=== PATIENT | male | born 1955 ===

== ENCOUNTER 2019-12-14 08:54 | Emergency (ER) | payer SELFPAY ==
[2019-12-14 09:54] VITALS: BP 138/72
--- NOTE | 2019-12-14 12:53 | Emergency Department Report ---
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 He states initially they started as small bumps and he was scratching them. He states that they increased in size and began scabbing and draining. He states that he was manually squeezing them. Patient states that he went to [facility] on 12/08/2019 and was given a prescription for Keflex. He states that despite the antibiotics the symptoms were not improving. He also had blood work performed and had a normal white blood cell count at that time. He states that he has clear drainage. He denies any fever, vomiting, diarrhea, chills, any other symptoms. He denies seeing or feeling anything bite him. He denies any abrasions or lacerations. 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 - Related Data Previous Rx's Medication Instructions Recorded Last Taken Type Acetaminophen/Codeine [Tylenol 1 tab PO Q6H PRN #10 tab 12/14/19 Unknown Rx /Codeine # 3 tab] Bacitracin Zinc Oint [Antibiotic 1 applic TP BID #1 tube 12/14/19 Unknown Rx Oint] Sulfamethoxazole/Trimethoprim 1 each PO BID 10 Days #20 tablet 12/14/19 Unknown Rx [Bactrim DS TAB] Abscess Boil HPI - HPI Chief Complaint: Wound/Laceration Stated Complaint: RT ARM INFECTION Time Seen by Provider: 12/14/19 12:14 Home Medications: Previous Rx's Medication Instructions Recorded Last Taken Type Acetaminophen/Codeine [Tylenol 1 tab PO Q6H PRN #10 tab 12/14/19 Unknown Rx /Codeine # 3 tab] Bacitracin Zinc Oint [Antibiotic 1 applic TP BID #1 tube 12/14/19 Unknown Rx Oint] Sulfamethoxazole/Trimethoprim 1 each PO BID 10 Days #20 tablet 12/14/19 Unknown Rx [Bactrim DS TAB] ED Review of Systems ROS: Stated complaint: RT ARM INFECTION Other details as noted in HPI Comment: All other systems reviewed and negative ED Past Medical Hx - Past Medical History Previous Medical History?: No - Social History Smoking Status: Never Smoker Substance Use Type: Alcohol - Medications Home Medications: Home Medications Medication Instructions Recorded Confirmed Last Taken Type Acetaminophen/Codeine [Tylenol 1 tab PO Q6H PRN #10 tab 12/14/19 Unknown Rx /Codeine # 3 tab] Bacitracin Zinc Oint [Antibiotic 1 applic TP BID #1 tube 12/14/19 Unknown Rx Oint] Sulfamethoxazole/Trimethoprim 1 each PO BID 10 Days #20 tablet 12/14/19 Unknown Rx [Bactrim DS TAB] ED Physical Exam - General Limitations: No Limitations General appearance: alert, in no apparent distress - Head Head exam: Present: atraumatic, normocephalic - Eye Eye exam: Present: normal appearance - ENT ENT exam: Present: mucous membranes moist - Neurological Exam Neurological exam: Present: alert, oriented X3 - Psychiatric Psychiatric exam: Present: normal affect, normal mood - Skin Skin exam: Present: warm, dry, other (2 cm circular area of induration present to the right arm, another 1 cm circular area of induration present to the right arm, there is scabbing and openings present, serous drainage, no purulent drainage, no fluctuance, mild surrounding erythema, neurovascularly intact, FROM of the RUE) ED Course Vital Signs 12/14/19 09:53 Temperature 97.8 F Pulse Rate 74 Respiratory 20 Rate Blood Pressure 138/72 [Right] O2 Sat by Pulse 98 Oximetry ED Medical Decision Making - Medical Decision Making Maty, patient registration representative used for Faroese interpretation Patient is a 64-year-old male who presents emergency room with complaints of a right arm infection that began 22 days ago. He states initially they started as small bumps and he was scratching them. He states that they increased in size and began scabbing and draining. He states that he was manually squeezing them. Patient states that he went to [facility] on 12/08/2019 and was given a prescription for Keflex. He states that despite the antibiotics the symptoms were not improving. He also had blood work performed and had a normal white blood cell count at that time. He states that he has clear drainage. He denies any fever, vomiting, diarrhea, chills, any other symptoms. He denies seeing or feeling anything bite him. He denies any abrasions or lacerations. 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 VSS. on exam: 2 cm circular area of induration present to the right arm, another 1 cm circular area of induration present to the right arm, there is scabbing and openings present, serous drainage, no purulent drainage, no fluctuance, mild surrounding erythema, neurovascularly intact, FROM of the RUE. Examination appears consistent with cellulitis, no drainable abscess at this time. Patient given prescription for Bactrim, Tylenol with codeine, bacitracin ointment. Advised patient that he needs to have the area reexamined within the next 2 days. Advised patient Please use medication as prescribed. Do not drive or operate machinery while taking pain medication. Please keep area clean, dry, covered. Wash with antibacterial soap and water twice a day and pat dry. No hot tub, no pool, no soaking water. Follow-up with a primary care doctor in 2 to 3 days for reexamination. Return to emergency room for any new or worsening symptoms. Critical care attestation.: If time is entered above; I have spent that time in minutes in the direct care of this critically ill patient, excluding procedure time. ED Disposition Clinical Impression: Cellulitis Qualifiers: Site of cellulitis: extremity Site of cellulitis of extremity: upper extremity Laterality: right Qualified Code(s): L03.113 - Cellulitis of right upper limb Disposition: DC-01 TO HOME OR SELFCARE Is pt being admited?: No Does the pt Need Aspirin: No Condition: Stable Instructions: Cellulitis (ED) Additional Instructions: Please use medication as prescribed. Do not drive or operate machinery while taking pain medication. Please keep area clean, dry, covered. Wash with antibacterial soap and water twice a day and pat dry. No hot tub, no pool, no soaking water. Follow-up with a primary care doctor in 2 to 3 days for reexamination. Return to emergency room for any new or worsening symptoms. Utilice los medicamentos segn lo prescrito. No conduzca ni maneje maquinaria mientras est tomando analgsicos. Mantenga el adam limpia, seca y cubierta. Vicente con agua y jabn antibacteriano dos veces al da y secar. Sin jacuzzi, sin piscina, sin agua para remojar. Atilio un seguimiento con un mdico de atencin primaria en 2 a 3 sharp para un nuevo examen. Regrese a la donna de emergencias por cualquier sntoma nuevo o que empeore. Prescriptions: Bacitracin Zinc Oint [Antibiotic Oint] 1 applic TP BID #1 tube Sulfamethoxazole/Trimethoprim [Bactrim DS TAB] 1 each PO BID 10 Days #20 tablet Acetaminophen/Codeine [Tylenol /Codeine # 3 tab] 1 tab PO Q6H PRN #10 tab PRN Reason: Pain , Severe (7-10) Referrals: TIARA BARRON MD [Staff Physician] - 2-3 Days [facility] [Provider Group] - 2-3 Days Time of Disposition: 12:52 Print Language: MONEGASQUE
== END 2019-12-14 13:24 | disposition home or self-care (01) ==
LOC: ED 08:54
DX: L03.113 Cellulitis of right upper limb (principal); Z79.899 Other long term (current) drug therapy
CPT/HCPCS: 99282

== ENCOUNTER 2019-12-17 09:29 | Emergency (ER) | payer SELFPAY ==
[2019-12-17 09:38] VITALS: BP 156/76
[2019-12-17 12:12] LABS: Hematocrit 40.6 % (35.5-45.6); Hemoglobin 13.5 gm/dl (11.8-15.2); Mean Corpuscular HGB Conc 33 % (32-34); Mean Corpuscular Volume 88 fl (84-94); Platelet Count 232 K/mm3 (140-440); Red Blood Count 4.63 M/mm3 (3.65-5.03); Red Cell Distribution Width 15.2 % (13.2-15.2)
[2019-12-17 12:32] LABS: BUN/Creatinine Ratio 18; Blood Urea Nitrogen 16 mg/dL (9-20); Calcium 9.4 mg/dL (8.4-10.2); Hemolysis Index 3
--- NOTE | 2019-12-17 13:16 | Emergency Department Report ---
ED General Adult HPI - General Chief complaint: Skin/Abscess/Foreign Body Stated complaint: CHECK ARM Time Seen by Provider: 12/17/19 11:24 Source: patient Mode of arrival: Ambulatory Limitations: Language Barrier - History of Present Illness Initial comments: 64-year-old male patient presents for recheck of his right arm lesion x today. Patient was seen on 12/14/2019 for this here in the ED-he was prescribed Bactrim at that time he states his wound has improved. He states there is still some pain and that he is out of pain medication. He denies any fever/chills/sweats, increased redness/swelling, or numbness/tingling/weakness in his arm. He rates his current pain as a 6/10 in severity. Patient states he he thought he was supposed to follow-up here in the ED and was unaware that he was instructed to follow-up with primary care. - Related Data Previous Rx's Medication Instructions Recorded Last Taken Type Acetaminophen/Codeine [Tylenol 1 tab PO Q6H PRN #10 tab 12/14/19 Unknown Rx /Codeine # 3 tab] Bacitracin Zinc Oint [Antibiotic 1 applic TP BID #1 tube 12/14/19 Unknown Rx Oint] Sulfamethoxazole/Trimethoprim 1 each PO BID 10 Days #20 tablet 12/14/19 Unknown Rx [Bactrim DS TAB] Ibuprofen [Motrin 800 MG tab] 800 mg PO Q8HR PRN #20 tablet 12/17/19 Unknown Rx traMADoL [Ultram 50 MG tab] 50 mg PO Q6HR PRN #8 tablet 12/17/19 Unknown Rx Allergies Allergy/AdvReac Type Severity Reaction Status Date / Time No Known Allergies Allergy Unverified 12/17/19 09:31 ED Review of Systems ROS: Stated complaint: CHECK ARM Other details as noted in HPI Constitutional: denies: chills, diaphoresis, fever, malaise Musculoskeletal: denies: joint swelling, arthralgia Skin: lesions. denies: change in color Hematological/Lymphatic: denies: swollen glands ED Past Medical Hx - Past Medical History Previous Medical History?: No - Surgical History Past Surgical History?: No - Social History Smoking Status: Never Smoker - Medications Home Medications: Home Medications Medication Instructions Recorded Confirmed Last Taken Type Acetaminophen/Codeine [Tylenol 1 tab PO Q6H PRN #10 tab 12/14/19 Unknown Rx /Codeine # 3 tab] Bacitracin Zinc Oint [Antibiotic 1 applic TP BID #1 tube 12/14/19 Unknown Rx Oint] Sulfamethoxazole/Trimethoprim 1 each PO BID 10 Days #20 tablet 12/14/19 Unknown Rx [Bactrim DS TAB] Ibuprofen [Motrin 800 MG tab] 800 mg PO Q8HR PRN #20 tablet 12/17/19 Unknown Rx traMADoL [Ultram 50 MG tab] 50 mg PO Q6HR PRN #8 tablet 12/17/19 Unknown Rx ED Physical Exam - General Limitations: No Limitations General appearance: alert, in no apparent distress - Head Head exam: Present: atraumatic, normocephalic - Respiratory Respiratory exam: Absent: respiratory distress - Cardiovascular Cardiovascular Exam: Present: regular rate - Neurological Exam Neurological exam: Present: alert, oriented X3 - Psychiatric Psychiatric exam: Present: normal affect, normal mood - Skin Skin exam: Present: warm, dry, normal color, other (Approximately 3 cm round scabbed lesion noted to right posterior forearm with minimal underlying sw elling; no erythema or active drainage is noted; there is mild tenderness to palpation patient has full range of motion of the arm and hand; no cellulitic changes noted). Absent: rash ED Course Vital Signs 12/17/19 09:38 Temperature 98.5 F Pulse Rate 71 Respiratory 18 Rate Blood Pressure 156/76 O2 Sat by Pulse 94 Oximetry ED Medical Decision Making - Lab Data Result diagrams: 12/17/19 12:00 12/17/19 12:00 Lab Results 12/17/19 12/17/19 12/17/19 Range/Units 12:00 12:00 12:00 WBC 5.4 (4.5-11.0) K/mm3 RBC 4.63 (3.65-5.03) M/mm3 Hgb 13.5 (11.8-15.2) gm/dl Hct 40.6 (35.5-45.6) % MCV 88 (84-94) fl MCH 29 (28-32) pg MCHC 33 (32-34) % RDW 15.2 (13.2-15.2) % Plt Count 232 (140-440) K/mm3 Sodium 136 L (137-145) mmol/L Potassium 4.8 (3.6-5.0) mmol/L Chloride 100.0 (98-107) mmol/L Carbon Dioxide 28 (22-30) mmol/L Anion Gap 13 mmol/L BUN 16 (9-20) mg/dL Creatinine 0.9 (0.8-1.3) mg/dL Estimated GFR > 60 ml/min BUN/Creatinine Ratio 18 % Glucose 115 H (75-100) mg/dL Lactic Acid 1.70 (0.7-2.0) mmol/L Calcium 9.4 (8.4-10.2) mg/dL - Medical Decision Making 64-year-old male patient presents for recheck of his right arm lesion x today. Patient was seen on 12/14/2019 for this here in the ED-he was prescribed Bactrim at that time he states his wound has improved. He states there is still some pain and that he is out of pain medication. He denies any fever/chills/sweats, increased redness/swelling, or numbness/tingling/weakness in his arm. He rates his current pain as a 6/10 in severity. Patient states he he thought he was supposed to follow-up here in the ED and was unaware that he was instructed to follow-up with primary care. On exam, the lesion on the right forearm appears to have improved with Bactrim. Recommend continuing Bactrim. Prescription for ibuprofen given for pain. Patient instructed to use warm compresses 3-4 times a day over the lesion. Also discussed signs and symptoms of worsening/unresolved infection and strict return precautions in detail with patient who verbalized understanding. Patient to follow-up with primary care within 3 to 5 days. He is well-appearing stable for discharge home. Critical care attestation.: If time is entered above; I have spent that time in minutes in the direct care of this critically ill patient, excluding procedure time. ED Disposition Clinical Impression: Encounter for wound re-check Disposition: DC-01 TO HOME OR SELFCARE Is pt being admited?: No Condition: Stable Instructions: Abscess (ED) Prescriptions: Ibuprofen [Motrin 800 MG tab] 800 mg PO Q8HR PRN #20 tablet PRN Reason: pain traMADoL [Ultram 50 MG tab] 50 mg PO Q6HR PRN #8 tablet PRN Reason: Pain Referrals: [facility] [Provider Group] - 12/21/19 Print Language: KHMER
== END 2019-12-17 13:24 | disposition home or self-care (01) ==
LOC: ED 09:29
DX: Z76.89 Persons encountering health services in other specified circumstances (principal)
CPT/HCPCS: 36415; 80048; 82140; 85027; 87040; 99283